=== PATIENT | female | born 1970 | race Caucasian/White ===

== ENCOUNTER 2017-04-17 13:21 | Emergency (ER) | payer OTHER ==
[2017-04-17 13:33] VITALS: BP 121/71
--- NOTE | 2017-04-17 13:57 | UC ---
Complaint Female HPI - HPI Summary HPI Summary: Low abd pressure and feeling like she has to pee all the time, especially right at the end of her urine stream for several days. Much worse yesterday. Does not recall ever having had a UTI. For a few months has noticed some urinary frequency and difficulty emptying bladder. Denies fever, back pain, or hematuria. - History Of Current Complaint Chief Complaint: UCGU Stated Complaint: URINARY COMPLAINT Time Seen by Provider: 04/17/17 13:28 Hx Obtained From: Patient Hx Last Menstrual Period: 04/17/17 ?: No Onset/Duration: Gradual Onset, Lasting Days Timing: Constant Severity Initially: Mild Severity Currently: Moderate Character: Cramping Aggravating Factor(s): Urination Associated Signs And Symptoms: Negative: Fever, Back Pain, Vaginal Bleeding/ Discharge, Vaginal Discharge, Nausea, Vomiting(# Of Episodes =) - Allergies/Home Medications Allergies/Adverse Reactions: Allergies Allergy/AdvReac Type Severity Reaction Status Date / Time No Known Allergies Allergy Verified 04/17/17 13:28 Home Medications: Home Medications Escitalopram (NF) [Lexapro 10 mg (NF)] 10 mg PO DAILY 04/17/17 [History Confirmed 04/17/17] Ibuprofen TAB* [Advil TAB*] 400 mg PO Q6H PRN 04/17/17 [History Confirmed ] Magnesium Oxide TAB* [MagOx 400 TAB*] 400 mg PO DAILY 04/17/17 [History Confirmed 04/17/17] Pantoprazole TAB (NF) [Protonix TAB (NF)] 40 mg PO DAILY 04/17/17 [History Confirmed 04/17/17] Probiotic Product [Probiotic] 1 tab PO DAILY 04/17/17 [History Confirmed ] Vitamin B Complex TAB* [Complex B-100*] 1 tab PO DAILY 04/17/17 [History Confirmed 04/17/17] PMH/Surg Hx/FS Hx/Imm Hx Previously Healthy: Yes - Surgical History Surgical History: None - Family History Known Family History: Negative: Blood Disorder - Social History Lives: With Family Alcohol Use: Occasionally Substance Use Type: None Smoking Status (MU): Never Smoked Tobacco Review of Systems Constitutional: Negative Skin: Negative Eyes: Negative ENT: Negative Respiratory: Negative Cardiovascular: Negative Gastrointestinal: Negative Genitourinary: Frequency, Urgency Motor: Negative Neurovascular: Negative Musculoskeletal: Negative Neurological: Negative Psychological: Negative All Other Systems Reviewed And Are Negative: Yes Physical Exam Triage Information Reviewed: Yes Appearance: Well-Appearing, No Pain Distress, Well-Nourished Vital Signs: Initial Vital Signs Temp 98.2 F 04/17/17 13:25 Pulse 72 04/17/17 13:25 Resp 16 04/17/17 13:25 BP 121/71 04/17/17 13:25 Pulse Ox 100 04/17/17 13:25 Vital Signs Reviewed: Yes Eye Exam: Normal Eyes: Positive: Conjunctiva Clear ENT Exam: Normal ENT: Positive: Normal ENT inspection, Hearing grossly normal, Pharynx normal, TMs normal Dental Exam: Normal Neck exam: Normal Neck: Positive: Supple, Nontender, No Lymphadenopathy Respiratory Exam: Normal Respiratory: Positive: Chest non-tender, Lungs clear, Normal breath sounds, No respiratory distress, No accessory muscle use Cardiovascular Exam: Normal Cardiovascular: Positive: RRR, No Murmur Abdomen Description: Negative: CVA Tenderness (R), CVA Tenderness (L) Musculoskeletal Exam: Normal Neurological Exam: Normal Neurological: Positive: Alert Psychological Exam: Normal Skin Exam: Normal Complaint Female Dx - Differential Dx/Diagnosis Provider Diagnoses: UTI Discharge - Discharge Plan Condition: Stable Disposition: HOME Prescriptions: Nitrofurantoin Macrocrystals* [Macrodantin*] 100 mg PO BID #10 cap Patient Education Materials: Urinary Tract Infection in Women (ED) Referrals: Ronda Woodard MD [Medical Doctor] - Additional Instructions: Drink plenty of fluids. If you are not markedly improved within 2 days, please call or return. After 1 week, you should see your steel box toe inserter if you are still feeling urinary frequency and difficulty emptying your bladder.
== END 2017-04-17 13:59 | disposition home or self-care (01) ==
LOC: UCCORT 13:21
DX: N39.0 Urinary tract infection, site not specified (principal)
CPT/HCPCS: 81003; 87077; 87086; 87186; 99212; G0463

== ENCOUNTER 2017-11-08 16:33 | Emergency (ER) | payer OTHER ==
[2017-11-08 17:42] VITALS: BP 100/63
[2017-11-08] MEDS ORDERED: Acetaminophen TAB* 325 MG PO ONE (17:55)
--- NOTE | 2017-11-08 18:00 | ED ---
GI/ HPI - HPI Summary HPI Summary: 46 yr old female with the complaint of fever chills, low abdominal pain, frontal headache, low back ache. The patient has been having severe lower abdominal pain. Onset two -three days. Not associated with NVD. Not associated with cough. No photophobia or neck stiffness. No other complaints. - History of Current Complaint Chief Complaint: UCGeneralIllness Time Seen by Provider: 11/08/17 17:43 Stated Complaint: URINARY Hx Last Menstrual Period: 26 DAYS AGO Pain Intensity: 8 - Allergy/Home Medications Allergies/Adverse Reactions: Allergies Allergy/AdvReac Type Severity Reaction Status Date / Time No Known Allergies Allergy Verified 11/08/17 17:34 Home Medications: Home Medications Acetaminophen [Extra Strength Non-Aspirin] 100 mg PO Q6H PRN 11/08/17 [History Confirmed 11/08/17] PMH/Surg Hx/FS Hx/Imm Hx Previously Healthy: Yes Musculoskeletal History: Reports: Hx Scoliosis Infectious Disease History: No Infectious Disease History: Denies: Traveled Outside the [place] in Last 30 Days - Family History Known Family History: Negative: Blood Disorder - Social History Alcohol Use: Occasionally Substance Use Type: Reports: None Smoking Status (MU): Never Smoked Tobacco Review of Systems Positive: Fever, Chills Positive: Abdominal Pain All Other Systems Reviewed And Are Negative: Yes Physical Exam Triage Information Reviewed: Yes Vital Signs On Initial Exam: Initial Vitals Temp Pulse Resp BP Pulse Ox 101 F 84 18 100/63 100 11/08/17 17:36 11/08/17 17:36 11/08/17 17:36 11/08/17 17:36 11/08/17 17:36 Vital Signs Reviewed: Yes Appearance: Positive: Well-Appearing, No Pain Distress Skin: Positive: Warm Head/Face: Positive: Normal Head/Face Inspection Eyes: Positive: EOMI ENT: Positive: Normal ENT inspection Neck: Positive: Nontender Respiratory/Lung Sounds: Positive: Clear to Auscultation, Breath Sounds Present Cardiovascular: Positive: RRR. Negative: Murmur Abdomen Description: Positive: Nontender Musculoskeletal: Positive: Strength/ROM Intact Neurological: Positive: Sensory/Motor Intact, Alert, Oriented to Person Place, Time, CN Intact II-III, Normal Gait, Speech Normal Psychiatric: Positive: Normal - [place] Coma Scale Best Eye Response: 4 - Spontaneous Best Motor Response: 6 - Obeys Commands Best Verbal Response: 5 - Oriented Coma Scale Total: 15 Diagnostics - Vital Signs Vital Signs Temp Pulse Resp BP Pulse Ox 11/08/17 17:36 101 F 84 18 100/63 100 - Laboratory Lab Statement: Any lab studies that have been ordered have been reviewed, and results considered in the medical decision making process. GIGU Course/Dx - Course Course Of Treatment: 46 yr old with abdominal pain, fever. She signed out AMA with refusal of ambulance transport. - Diagnoses Provider Diagnoses: Abdominal pain, Fever Discharge - Discharge Plan Condition: Good Disposition: AGAINST MEDICAL ADVICE Referrals: Stephen Adamson MD [Primary Care Provider] -
== END 2017-11-08 18:28 | disposition left against medical advice (07) ==
LOC: UCCORT 16:33
DX: R10.30 Lower abdominal pain, unspecified (principal); R50.9 Fever, unspecified; Z32.02 Encounter for pregnancy test, result negative
CPT/HCPCS: 81003; 84702; 99212; A9270-GY; G0463